=== PATIENT | female | born 1965 | race Caucasian/White ===

== ENCOUNTER → 2019-10-26 08:07 | Outpatient (CLI) | payer OTHER, SELFPAY ==
--- NOTE | ~2019-10-26 | MMUS_ITS ---
EXAMINATION: MM diagnostic alfredo BI w timoteo, US breast LT limited HISTORY: Left breast pain TECHNIQUE: Additional 3-D tomosynthesis images of the breasts were performed and synthetic 2-D images were generated. CAD analysis was submitted and interpreted. High resolution left breast ultrasound w as performed. COMPARISON: Comparison to multiple prior studies sequentially, with oldest reviewed study dated 12/04. BREAST PARENCHYMAL COMPOSITION: BREAST PARENCHYMAL COMPOSITION: There are scattered areas of fibroglandular density. FINDINGS: MAMMOGRAPHIC FINDINGS: There are no suspicious masses, calcifications or architectural distortion in either breast to sugges t malignancy. ULTRASOUND: Limited left breast ultrasound: At 2:00, 12 cm from the nipple, there is a small circumscribed hypoechoic mass with echogenic center measuring 3 mm maximum dimension and internal vascularity, likely a small intramammary lymph node. IMPRESSION: 1. Probable benign left breast mass at 2:00, 12 cm from the nipple. 2. Recommend 6 month follow-up left breast ultrasound BI-RADS category 3, probably benign findings. Reviewed, dictated and finalized at location A. IMPRESSION: 1. Probable benign left breast mass at 2:00, 12 cm from the nipple. 2. Recommend 6 month follow-up left breast ultrasound BI-RADS category 3, probably benign findings.
== END ==
PROVIDERS: Visit Provider Family Medicine
DX: N64.4 Mastodynia (principal)
CPT/HCPCS: 76642; 77062; 77066; G0279

== ENCOUNTER → 2020-04-27 10:31 | Outpatient (CLI) | payer OTHER, SELFPAY ==
--- NOTE | ~2020-04-27 | US_ITS ---
EXAMINATION: US breast LT limited HISTORY: Six-month follow-up for probably benign left breast mass TECHNIQUE: Limited left breast ultrasound is performed. FINDINGS: There is a stable 3 mm x 2 mm oval, circumscribed, parallel, hypoechoic mass at the 2:00 lo cation 12 cm from the nipple with no posterior features or internal vascularity. There has been no landry spicious interval change. IMPRESSION: Stable, probably benign left breast mass. Six-month follow-up ultrasound is recommended. BI-RADS category 3, probably benign findings. Reviewed, dictated and finalized at location A. COURSE RANGER IMPRESSION: Stable, probably benign left breast mass. Six-month follow-up ultrasound is rec ommended. BI-RADS category 3, probably benign findings.
== END ==
PROVIDERS: PCP Family Medicine; Visit Provider Family Medicine
DX: N63.20 Unspecified lump in the left breast, unspecified quadrant (principal); R92.8 Other abnormal and inconclusive findings on diagnostic imaging of breast
CPT/HCPCS: 76642

== ENCOUNTER → 2020-12-14 09:00 | Outpatient (CLI) | payer OTHER, SELFPAY ==
--- NOTE | ~2020-12-14 | MMUS_ITS ---
EXAMINATION: MM diagnostic alfredo BI w timoteo, US breast LT limited HISTORY: Six-month follow-up of probably benign left breast 3 x 2 mm mass at 2:00 12 cm from nipple TECHNIQUE: ML, MLO and craniocaudal 3-D tomosynthesis images of both breasts were performed and synth etic 2-D images were generated. CAD analysis was submitted and interpreted. High resolution targeted 2 o'clock left breast ultrasound was performed. COMPARISON: 05/14/2020 Limited left breast ultrasound 10/26/2019 bilateral diagnostic digital mammogram and limited left breast ultrasound 12/21/2013 bilateral digital screening mammogram BREAST PARENCHYMAL COMPOSITION: There are scattered areas of fibroglandular density. FINDINGS: MAMMOGRAPHIC FINDINGS: Approximately 3.3 mm circumscribed opacity is noted in the left axillary tail area, likely present an d stable since 12/21/2013. No suspicious mass or architectural distortion, malignant calcification, skin thickening or retractio n or significant new or developing density is detected. ULTRASOUND: 2:00 12 cm from nipple: There is an approximately 3 x 3.8 mm stable oval circumscribed hypoechoic les ion with color flow signal at the hilum, likely corresponding to the mammographic opacity in the left axillary tail area, probably a small lymph node. IMPRESSION: 1. Probable benign finding 2. 6 month diagnostic left mammogram and targeted left breast ultrasound follow-up are recommended BI-RADS category 3, probably benign findings. Reviewed, dictated and finalized at location A. IMPRESSION: 1. Probable benign finding 2. 6 month diagnostic left mammogram and targeted left breast ultrasound follow -up are recommended BI-RADS category 3, probably benign findings.
== END ==
PROVIDERS: PCP Family Medicine; Visit Provider Family Medicine
DX: N63.21 Unspecified lump in the left breast, upper outer quadrant (principal)
CPT/HCPCS: 76642; 77062; 77066; G0279

== ENCOUNTER → 2021-06-16 08:55 | Outpatient (CLI) | payer OTHER, SELFPAY ==
--- NOTE | ~2021-06-16 | MMUS_ITS ---
EXAMINATION: MM diagnostic alfredo LT w timoteo, US breast LT limited HISTORY: Follow-up left breast mass TECHNIQUE: Additional 3-D tomosynthesis images of the left breast were performed and synthetic 2-D im ages were generated. CAD analysis was submitted and interpreted. High resolution Limited left breast ultrasound was performed. COMPARISON: Comparison to multiple prior studies sequentially, with oldest reviewed study dated 12/21. BREAST PARENCHYMAL COMPOSITION: Breast composed of scattered areas of fibroglandular density FINDINGS: MAMMOGRAPHIC FINDINGS: There are no suspicious masses, calcifications or architectural distortion in the left breast to sugg est malignancy. ULTRASOUND: Limited left breast ultrasound: There is a stable 3 mm hypoechoic mass with internal vascularity, no posterior features and no posterior acoustic shadowing. This is stable dating back to 10/26/2019. IMPRESSION: 1. Stable 3 mm left breast mass, likely benign. 2. Recommend 6 month follow-up Limited left breast ultrasound and bilateral mammogram BI-RADS category 3, probably benign findings. Reviewed, dictated and finalized at location A. IMPRESSION: 1. Stable 3 mm left breast mass, likely benign. 2. Recommend 6 month follow-up Limited left breast [facility] BI-RADS category 3, probably benign findings.
== END ==
PROVIDERS: Visit Provider Obstetrics & Gynecology Gynecology
DX: N63.20 Unspecified lump in the left breast, unspecified quadrant (principal)
CPT/HCPCS: 76642; 77061; 77065; G0279